=== PATIENT | female | born 1960 | race Caucasian/White ===

== ENCOUNTER → 2021-06-11 | Outpatient (CLI) | payer OTHER | LOC: M WHC 09:06 | DX: R92.2 Inconclusive mammogram (principal); Z78.0 Asymptomatic menopausal state ==

== ENCOUNTER 2022-06-10 21:05 | Day surgery (SDC) | payer OTHER ==
[~2022-06-10] VITALS: Ht 160 cm; Wt 152.9 kg
[~2022-06-10 21:05] MED LIST: ACETAMINOPHEN TAB 650MG DOSE (2X325MG) PO PRN; KETOROLAC 30 MG/ML 1ML VIAL IV PRN; NORCO, ANEXSIA 5/325MG TABLET (HYDROcodone/ACETAMINOPHEN) PO PRN; ONDANSETRON 4MG 2ML VIAL IV PRN
[2022-06-10 21:07] VITALS: BP 142/80
[2022-06-10] MEDS ORDERED: BUPIVACAINE/EPIN 0.25% 30ML VIAL As Ordered ONE (21:20)
[2022-06-10] MEDS ORDERED: ROCURONIUM BROMIDE 50MG/5ML VIAL As Ordered ONE (21:25)
[2022-06-10] MEDS ORDERED: MIDAZOLAM INJ 2MG/2ML VIAL As Ordered ONE (21:25)
[2022-06-10] MEDS ORDERED: fentaNYL 100 MCG/2 ML INJECTION As Ordered ONE (21:25)
[2022-06-10] MEDS ORDERED: LIDOCAINE 2% 100MG/5ML SDV (FOR ANES.) As Ordered ONE (21:25)
[2022-06-10] MEDS ORDERED: propofoL 200 MG/20 ML VIAL As Ordered ONE (21:25)
[2022-06-10] MEDS ORDERED: ONDANSETRON 4MG 2ML VIAL As Ordered ONE (21:55)
[2022-06-10] MEDS ORDERED: ePHEDrine SULFATE 25 MG/5 ML(5MG/ML) SYRINGE As Ordered ONE (21:57)
[2022-06-10] MEDS ORDERED: PHENYLephrine 500MCG 5ML (100MCG/ML) SYRINGE As Ordered ONE (22:01)
[2022-06-10] MEDS ORDERED: ZOSYN 3.375GM VIAL As Ordered ONE (22:01)
[2022-06-10] MEDS ORDERED: ZOSYN 4.5GM VIAL As Ordered ONE (22:01)
[2022-06-10] MEDS ORDERED: ACETAMINOPHEN 1000MG 100ML IV BAG As Ordered ONE (22:04)
[2022-06-10] MEDS ORDERED: KETOROLAC 60MG 2ML VIAL As Ordered ONE (22:05)
[2022-06-10] MEDS: PIPERACILLIN/TAZOBACTAM SOD 3.375 GM in D5W MINI-BAG PLUS 50 ML IV SCH (22:05)
[2022-06-10] MEDS ORDERED: SUGAMMADEX SODIUM 500 MG/5 ML VIAL (BRIDION) As Ordered ONE (22:05)
[2022-06-10] MEDS: NS 1,000 ML IV SCH (23:34)
[2022-06-10 23:42] VITALS: BP 117/66
[2022-06-10] MEDS: SENOKOT S TAB PO SCH (23:44)
[2022-06-11 00:20] VITALS: BP 117/68
[2022-06-11] MEDS: PIPERACILLIN/TAZOBACTAM SOD 3.375 GM in D5W MINI-BAG PLUS 50 ML IV SCH ×2 (04:38→09:13)
[2022-06-11 07:00] LABS: HEMATOCRIT 31.6 % (36.0-47.0); HEMOGLOBIN 9.9 g/dl (12.0-15.5); MEAN CORPUSCULAR HEMOGLOBIN 26.1 pg (27.0-33.0); MEAN CORPUSCULAR HGB CONC 31.3 g/dl (32.0-36.5); MEAN CORPUSCULAR VOLUME 83.4 fl (80.0-96.0); PLATELET COUNT, AUTOMATED 315 10^3/uL (150-450); RED BLOOD COUNT 3.79 10^6/uL (4.00-5.40); WHITE BLOOD COUNT 10.2 10^3/uL (4.0-10.0)
[2022-06-11 07:02] VITALS: BP 106/57
[2022-06-11] MEDS: NS 1,000 ML IV SCH (09:13)
[2022-06-11] MEDS: SENOKOT S TAB PO SCH (09:13)
== END 2022-06-11 10:50 | disposition home or self-care (01) ==
LOC: M MS5PR 21:05 → M SDC 21:05 → EDSTATUS 21:24 → M SDC 21:34
PROVIDERS: ATTEND Surgery
DX: K35.890 Other acute appendicitis without perforation or gangrene (principal); K21.9 Gastro-esophageal reflux disease without esophagitis; E78.5 Hyperlipidemia, unspecified; Z88.2 Allergy status to sulfonamides; Z88.8 Allergy status to other drugs, medicaments and biological substances
CPT/HCPCS: 36415; 44970; 85027; 88304; 96365; 96366; J0131; J1100; J1885; J2250; J2370; J2405; J2543; J3010; S0020

== ENCOUNTER → 2022-06-30 | Outpatient (CLI) | payer OTHER | LOC: M WHC 13:36 | PROVIDERS: ATTEND Nurse Practitioner Family | DX: R92.2 Inconclusive mammogram (principal); Z98.890 Other specified postprocedural states ==

== ENCOUNTER → 2022-12-16 | Outpatient (CLI) | payer OTHER | LOC: M WHC 07:26 | PROVIDERS: ATTEND Obstetrics & Gynecology | DX: N94.89 Other specified conditions associated with female genital organs and menstrual cycle (principal) ==

== ENCOUNTER → 2023-07-29 | Outpatient (REF) | payer OTHER | LOC: M PLALAB 13:08 | PROVIDERS: ATTEND Obstetrics & Gynecology | DX: Z12.4 Encounter for screening for malignant neoplasm of cervix (principal) | CPT/HCPCS: 87624; G0123 ==

== ENCOUNTER → 2023-07-29 | Outpatient (CLI) | payer OTHER | LOC: M WHC 08:56 | PROVIDERS: ATTEND Obstetrics & Gynecology | DX: Z12.31 Encounter for screening mammogram for malignant neoplasm of breast (principal) ==